=== PATIENT | male | born 1940 | race Caucasian/White ===

== ENCOUNTER 2021-04-12 11:39 | Emergency (ER) | payer MEDICARE, SELFPAY ==
--- NOTE | ~2021-04-12 | XR_ITS ---
EXAMINATION: XR knee LT min 4V EXAM DATE: 04/12/2021 12:27 INDICATION: Fall yesterday, missed a stair. Left knee medial pain. TECHNIQUE: Left knee frontal, crosstable lateral, orthogonal oblique projections for interpretation. There is no prior study for comparison. FINDINGS: No evidence osteochondral defect or joint body in the left knee joint. There are no acute fractures or dislocations identified. There is no subcutaneous gas. There is soft tissue swelling o michelle knee anteromedially. There are no radiopaque foreign bodies. Only small joint effusion. 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 Faint meniscal calcification. Chondrocalcinosis can be an age relate d finding, but with other possible etiologies including CPPD, parathyroid disorders, hemochromatosis, gout. Mild tricompartmental osteoarthritis. Vascular calcifications. IMPRESSION: 1. Left knee anteromedial soft tissue swelling. 2. Small joint effusion. 3. Other chronic findings. Reviewed, dictated and finalized at location B.
--- NOTE | ~2021-04-12 | XR_ITS ---
EXAMINATION: XR shoulder RT min 2V EXAM DATE: 04/12/2021 12:27 INDICATION: Fall last night, missed a stair. pain. Initial encounter. TECHNIQUE: The following right shoulder projections obtained: frontal projection with internal rotati on, frontal projection with external rotation, Grashey, and scapular Y view (4+ views). There is no prior study for comparison. FINDINGS: No evidence of right shoulder rotator cuff calcific tendinosis. There is mild glenohumer al joint, moderate acromioclavicular joint primary osteoarthritis. On a couple of the projections the re is slight lucency along the mid shaft of the clavicle, could be a vascular groove but check for po int tenderness. This finding has been indicated, marked on the examination for review, clinical corre lation. There is no subcutaneous gas. The soft tissue is unremarkable. Sternotomy wires. IMPRESSION: 1. Can't exclude nondisplaced midclavicular shaft fracture. Check for point tenderness.? 2. Osteoarthritis. Reviewed, dictated and finalized at location B. IMPRESSION: 1. Can't exclude nondisplaced midclavicular shaft fracture. Check for point te nderness.? 2. Osteoarthritis.
[2021-04-12 11:51] VITALS: BP 129/61; PULSE 75; RESP 18; TEMP 37.7; O2SAT 97
--- NOTE | 2021-04-12 12:49 | ED.UPPEXIN ---
HPI - Extremity Injury (Upper) General Chief Complaint: Extremity Injury, Upper Stated Complaint: Possible injury to right Shoulder and left Leg Time Seen by Provider: 04/12/21 12:30 Source: patient, RN notes reviewed and old records reviewed Mode of arrival: ambulatory Limitations: no limitations History of Present Illness HPI narrative: 80 year old male accompanied by spouse with complaints of falling yesterday at home when he missed the bottom step and fell onto his right shoulder and onto left knee.Patient holding his arm to his body and voices increase pain with movement of right arm and shoulder with tenderness to anterior shoulder region. Patient also has some pain to the medial aspect of his left knee on palpation but has full mobility of his left knee with no visual swelling present. Patient is very WASHOE and has some dementia. Patient's states that she has given him Tylenol and has applied ice to his right shoulder at intervals and to his left knee also. states that patient did not hit head when he fell or any loss of consciousness with fall, patient is on blood thinners daily. MD complaint: injury to: right and shoulder Onset (ago): day(s) (1) Other injuries: LLE (knee) Handedness: right Place: home Severity scale (1-10): 7 Relieving factors: immobilization Exacerbating factors: movement of extremity Context: fall Treatments prior to arrival: cold therapy and other (Tylenol) Related Data Home Medications Medication Instructions Recorded Confirmed alprazolam 0.25 mg PO BID 04/12/21 04/12/21 apixaban [Eliquis] 5 mg PO BID 04/12/21 04/12/21 aspirin [Adult Aspirin EC Low 81 mg PO 2XW 04/12/21 04/12/21 Strength] atorvastatin 40 mg PO DAILY 04/12/21 04/12/21 donepezil 5 mg PO HS 04/12/21 04/12/21 ezetimibe [Zetia] 10 mg PO DAILY 04/12/21 04/12/21 furosemide 20 mg PO DAILY 04/12/21 04/12/21 losartan 25 mg PO DAILY 04/12/21 04/12/21 metformin 250 mg PO DAILY 04/12/21 04/12/21 metoprolol tartrate 75 mg PO DAILY 04/12/21 04/12/21 omeprazole 20 mg PO DAILY 04/12/21 04/12/21 potassium chloride 10 meq PO DAILY 04/12/21 04/12/21 sertraline 50 mg PO DAILY 04/12/21 04/12/21 Allergies Allergy/AdvReac Type Severity Reaction Status Date / Time No Known Allergies Allergy Verified 04/12/21 12:02 Review of Systems Review of Systems: Narrative: CONSTITUTIONAL: Denies fever, chills, or sweats. EYES: Denies visual changes, redness, or discharge. ENT: Denies rhinorrhea, congestion, sore throat, or otalgia.WASHOE wears hearing aids CARDIOVASCULAR: Denies chest pain, palpitations, or edema. RESPIRATORY: Denies cough or dyspnea. GASTROINTESTINAL: Denies abdominal pain, nausea, vomiting, or diarrhea. GENITOURINARY: Denies dysuria or hematuria. SKIN: Denies rash or itching. MUSCULOSKELETAL: Denies back pain, positive for right shoulder joint pain and left medial knee pain, or myalgia. NEUROLOGIC: Denies headache, numbness, or weakness. PSYCHIATRIC: Positive for anxiety or depression, history of dementia All systems reviewed & are unremarkable except as noted in HPI and below PMFSH Past Medical History Medical History (Updated 04/15/21 @ 15:12 by Karon Lopez NP) Afib Anxiety CHF (congestive heart failure) Dementia Diabetes GERD (gastroesophageal reflux disease) Hyperlipidemia Hypertension Surgical History Surgical History (Updated 04/14/21 @ 16:23 by Karon Lopez NP) History of carpal tunnel release right History of open heart surgery 4 vessel cabbage History of tonsillectomy Hx of appendectomy Hx of cholecystectomy Social History Social History (Updated 04/14/21 @ 16:24 by Karon Lopez NP) Smoking status: Former smoker Additional smoking assessment comments: quit 2001 Alcohol intake: former Alcohol use details: social Substance use: never Living arrangements: with family Gender identity (if verbalized by the patient): Male Comments At time of signature, agree with nursing
== END 2021-04-12 13:55 | disposition home or self-care (01) ==
PROVIDERS: Emergency Provider Registered Nurse; PCP Internal Medicine
DX: S42.024A Nondisplaced fracture of shaft of right clavicle, initial encounter for closed fracture (principal); W10.9XXA Fall (on) (from) unspecified stairs and steps, initial encounter; M25.461 Effusion, right knee; Z87.891 Personal history of nicotine dependence; I48.91 Unspecified atrial fibrillation; F41.9 Anxiety disorder, unspecified; I11.0 Hypertensive heart disease with heart failure; I50.9 Heart failure, unspecified; F03.90 Unspecified dementia, unspecified severity, without behavioral disturbance, psychotic disturbance, mood disturbance, and anxiety; E78.5 Hyperlipidemia, unspecified; Z95.1 Presence of aortocoronary bypass graft
CPT/HCPCS: 73030; 73564; 99214; A4565; G0463

== ENCOUNTER 2021-09-12 11:36 | Emergency (ER) | payer MEDICARE, SELFPAY ==
--- NOTE | ~2021-09-12 | XR_ITS ---
EXAMINATION: XR knee RT min 4V DATE: 09/12/2021 12:47 INDICATION: 2-3 days of posterior right knee pain TECHNIQUE: Anteroposterior, 2 oblique, sunrise and crosstable lateral views of the right knee were ob tained COMPARISON: None. FINDINGS: Alignment is normal. No fracture. Joint spaces appear normal on nonweightbearing imaging. Tiny oseas nal osteophytes at the patellofemoral compartment. No joint effusion/layering lipohemarthrosis. Ather osclerotic calcification along the popliteal artery. Surgical clips subcutaneous tissues at the media l aspect of the thigh which may be related to prior saphenous vein graft harvest. IMPRESSION: 1. No right knee joint effusion or acute osseous abnormality Reviewed, dictated and finalized at location B. S OR SURVEYS INTERVIEWER
[2021-09-12 11:44] VITALS: BP 109/50; PULSE 73; RESP 16; TEMP 36.6; O2SAT 98
--- NOTE | 2021-09-12 12:25 | ED.GENADULT ---
HPI - General Adult General Chief complaint: Extremity Injury, Lower Stated complaint: back of right knee pain Source: patient and family (, [employer]. ) Mode of arrival: wheelchair Limitations: dementia History of Present Illness HPI narrative: Mr. Aceves is a pleasant 80 y/o male. PMHx Dementia, HTN, HLD, CHF. Presents to ED today with acute complaints of RT knee pain, worsening in the past 4 days. Patient's tells me that he had walked down the stairs a few days ago, approximately 12 stairs, and when he started coming back up the stairs he complained of a posterior knee pain. Client has been reporting his knee has been hurting him now more persistently since incident. No falls, known injury, or trauma. No loss of lower extremity sensation or control. No unilateral swelling, chest pain, or dyspnea. Portions of HPI have been retrieved from client's /hog scalder, secondary to cognitive deficits/dementia. Parties are without additional acute c/o illness upon PE. Related Data Home Medications Medication Instructions Recorded Confirmed alprazolam 0.25 mg PO BID 04/12/21 09/12/21 apixaban [Eliquis] 5 mg PO BID 04/12/21 09/12/21 aspirin [Adult Aspirin EC Low 81 mg PO 2XW 04/12/21 09/12/21 Strength] atorvastatin 40 mg PO DAILY 04/12/21 09/12/21 donepezil 5 mg PO HS 04/12/21 09/12/21 ezetimibe [Zetia] 10 mg PO DAILY 04/12/21 09/12/21 furosemide 20 mg PO DAILY 04/12/21 09/12/21 metformin 250 mg PO DAILY 04/12/21 09/12/21 metoprolol tartrate 75 mg PO DAILY 04/12/21 09/12/21 omeprazole 20 mg PO DAILY 04/12/21 09/12/21 potassium chloride 10 meq PO DAILY 04/12/21 09/12/21 sertraline 50 mg PO DAILY 04/12/21 09/12/21 Allergies Allergy/AdvReac Type Severity Reaction Status Date / Time No Known Allergies Allergy Verified 09/12/21 11:56 Review of Systems Review of Systems: CONSTITUTIONAL: Denies fever, chills, sweats. EYES: Denies visual changes, redness, discharge. ENT: Denies rhinorrhea, congestion, sore throat, otalgia. CARDIOVASCULAR: Denies chest pain, palpitations, edema. RESPIRATORY: Denies dyspnea, wheezing, cough GASTROINTESTINAL: Denies abdominal pain, nausea, vomiting, diarrhea. GENITOURINARY: Denies dysuria, hematuria, abnormal discharge SKIN: Denies rash or itching. MUSCULOSKELETAL: Denies acute back pain, or myalgia. RT knee pain. NEUROLOGIC: Denies numbness, or focal weakness. PSYCHIATRIC: Denies anxiety or depression. All systems reviewed & are unremarkable except as noted in HPI and below PMFSH Past Medical History Medical History Afib Anxiety CHF (congestive heart failure) Dementia Diabetes GERD (gastroesophageal reflux disease) Hyperlipidemia Hypertension Surgical History Surgical History History of carpal tunnel release right History of open heart surgery 4 vessel cabbage History of tonsillectomy Hx of appendectomy Hx of cholecystectomy Social History Social History Smoking status: Former smoker Additional smoking assessment comments: quit 2001 Alcohol intake: former Alcohol use details: social Substance use: never Gender identity (if verbalized by the patient): Male Exam Narrative: GENERAL: This is a well-nourished, well-developed adult, in no apparent distress. HEAD: normocephalic, atraumatic. EYES: Sclera clear/white. EARS: External ears normal. NOSE: External nose normal. THROAT: Mucous membranes moist. NECK: Neck supple, non-tender. CARDIOVASCULAR: Regular rate and rhythm without murmurs, gallops, or rubs. Pulses strong and intact RLE. No unilateral swelling or deficits. RESPIRATORY: Clear to auscultation. GASTROINTESTINAL: Abdomen soft, non-tender, nondistended. SKIN: warm, intact. Without bruising or integumentary disruption to RLE. NEURO: Alert, at baseline. N
== END 2021-09-12 13:15 | disposition home or self-care (01) ==
PROVIDERS: Emergency Provider Nurse Practitioner Adult Health; PCP Internal Medicine
DX: S83.91XA Sprain of unspecified site of right knee, initial encounter (principal); F03.90 Unspecified dementia, unspecified severity, without behavioral disturbance, psychotic disturbance, mood disturbance, and anxiety; I11.0 Hypertensive heart disease with heart failure; I50.9 Heart failure, unspecified; E78.5 Hyperlipidemia, unspecified; I48.91 Unspecified atrial fibrillation; E11.9 Type 2 diabetes mellitus without complications; Z87.891 Personal history of nicotine dependence; Z79.01 Long term (current) use of anticoagulants; Z79.82 Long term (current) use of aspirin; X58.XXXA Exposure to other specified factors, initial encounter
CPT/HCPCS: 73564; 99213; G0463

== ENCOUNTER 2022-10-12 10:02 | Emergency (ER) | payer MEDICARE, SELFPAY ==
--- NOTE | 2022-10-12 10:06 | WC.ED.TRAUMA ---
HPI - Trauma General Chief Complaint: Trauma Stated Complaint: right hand/head/elbow/knees injury Time Seen by Provider: 10/12/22 10:06 Source: patient, family and RN notes reviewed History of Present Illness HPI narrative: patient is an 9-year-old male who presents to urgent care with his spouse with complaints of bilateral knee pain, right elbow pain, right finger laceration and head trauma. Patient was on the toilet trying to lift himself up, support gave out, and he fell headfirst into the bathtub. Patient's spouse states that he does have dementia and is a man of very few words and this is his normal demeanor. Patient has a very flat affect and follows minimal commands. Denies any loss of consciousness. Spouse states the incident happened at approximately 8:30 a.m.. No other acute complaints. Spouse aware of the plan of care. Some parts of this dictation were generated by voice recognition software and may contain typographical and/or grammatical inaccuracies. Related Data Home Medications Medication Instructions Recorded Confirmed alprazolam 0.25 mg tablet 0.25 mg PO BID 04/12/21 09/12/21 apixaban 5 mg tablet (Eliquis) 5 mg PO BID 04/12/21 09/12/21 aspirin 81 mg tablet,delayed 81 mg PO 2XW 04/12/21 09/12/21 release atorvastatin 40 mg tablet 40 mg PO DAILY 04/12/21 09/12/21 donepezil 5 mg tablet 5 mg PO HS 04/12/21 09/12/21 ezetimibe 10 mg tablet (Zetia) 10 mg PO DAILY 04/12/21 09/12/21 furosemide 20 mg tablet 20 mg PO DAILY 04/12/21 09/12/21 metformin 500 mg tablet 250 mg PO DAILY 04/12/21 09/12/21 metoprolol tartrate 75 mg tablet 75 mg PO DAILY 04/12/21 09/12/21 omeprazole 20 mg capsule,delayed 20 mg PO DAILY 04/12/21 09/12/21 release potassium chloride 10 mEq 10 meq PO DAILY 04/12/21 09/12/21 capsule,extended release sertraline 50 mg tablet 50 mg PO DAILY 04/12/21 09/12/21 quetiapine 25 mg tablet 25 mg PO BID 10/12/22 10/12/22 Allergies Allergy/AdvReac Type Severity Reaction Status Date / Time No Known Allergies Allergy Verified 10/12/22 10:18 Review of Systems Review of Systems: CONSTITUTIONAL: Denies fever, chills, or sweats. EYES: Denies visual changes, redness, or discharge. ENT: Denies rhinorrhea, congestion, sore throat, or otalgia. CARDIOVASCULAR: Denies chest pain, palpitations, or edema. RESPIRATORY: Denies cough or dyspnea. GASTROINTESTINAL: Denies abdominal pain, nausea, vomiting, or diarrhea. GENITOURINARY: Denies dysuria or hematuria. SKIN: reports laceration right middle finger MUSCULOSKELETAL: Reports bilateral knee pain, right elbow pain NEUROLOGIC: Denies headache, numbness, or weakness. reports of head trauma PSYCHIATRIC: history of dementia All other systems reviewed are negative, except as documented in HPI. PENDING SALE TO [facility] Past Medical History Medical History Afib Anxiety CHF (congestive heart failure) Dementia Diabetes GERD (gastroesophageal reflux disease) Hyperlipidemia Hypertension Surgical History Surgical History History of carpal tunnel release right History of open heart surgery 4 vessel cabbage History of tonsillectomy Hx of appendectomy Hx of cholecystectomy Social History Social History (System 03/27/22 @ 15:51 by Duran Mccord) Smoking status: Former smoker Additional smoking assessment comments: quit 2001 Alcohol intake: former Alcohol use details: social Substance use: never Gender identity (if verbalized by the patient): Male Comments At the time of my signature, I reviewed and agree with the nursing past medical, surgical, social, and family history. There is no relevant family history pertinent to the patient complaint. Exam Narrative: GENERAL: This is a well-nourished, well-developed patient. Flat affect HEAD: normocephalic, atraumatic. hematoma noted to the forehead with mild ecchymosis and skin abrasion EYES: P
[2022-10-12 10:14] VITALS: BP 119/80; PULSE 75; RESP 20; TEMP 36.9; O2SAT 97
== END 2022-10-12 10:35 | disposition short-term general hospital (02) ==
PROVIDERS: Emergency Provider Nurse Practitioner Family; PCP Internal Medicine
DX: M25.562 Pain in left knee (principal); S09.90XA Unspecified injury of head, initial encounter; M25.561 Pain in right knee; M25.521 Pain in right elbow; S61.212A Laceration without foreign body of right middle finger without damage to nail, initial encounter; W18.11XA Fall from or off toilet without subsequent striking against object, initial encounter; I48.91 Unspecified atrial fibrillation; I50.9 Heart failure, unspecified; E11.9 Type 2 diabetes mellitus without complications; K21.9 Gastro-esophageal reflux disease without esophagitis; E78.5 Hyperlipidemia, unspecified; I11.0 Hypertensive heart disease with heart failure; Z87.891 Personal history of nicotine dependence
CPT/HCPCS: 99212; G0463